=== PATIENT | female | born 1965 ===

== ENCOUNTER 2017-05-12 14:29 | Emergency (ER) | payer BC ==
--- NOTE | 2017-05-12 15:25 | UC ---
UC General HPI - History of Current Complaint Chief Complaint: UCGeneralIllness Stated Complaint: MEDICATION CONCERN Time Seen by Provider: 05/12/17 15:16 Hx Obtained From: Patient Onset/Duration: Sudden Onset - Took 20mg propranolol this morning and then took a 60 mg Propranolol SR at 1 PM. Started to feel off 45 minutes later, like drunk / slowing down., Lasting Hours - 2, Still Present Onset Severity: Moderate Current Severity: Moderate Associated Signs & Symptoms: Positive: Diarrhea, Nausea. Negative: Confusion - but feels that thinking is slow, Chest Pain, Diaphoresis, Fever, Headache, Palpitations, SOB, Vomiting, Weakness - Allergy/Home Medications Allergies/Adverse Reactions: Allergies Allergy/AdvReac Type Severity Reaction Status Date / Time Amoxicillin Allergy Hives Verified 05/12/17 14:37 Cephalexin [From Keflex] Allergy Hives Verified 05/12/17 14:37 Home Medications: Home Medications ALPRAZolam TAB* [Xanax TAB*] 0.25 mg PO BID PRN 05/12/17 [History Confirmed 06/21] Omeprazole CAP* [Prilosec CAP* 20 MG] 20 mg PO DAILY 05/12/17 [History Confirmed 05/12/17] Propranolol LA CAP* [Inderal LA CAP*] 60 mg PO DAILY 05/12/17 [History Confirmed 05/12/17] Propranolol TAB* [Inderal TAB*] 20 mg PO TID 05/12/17 [History Confirmed ] PMH/Surg Hx/FS Hx/Imm Hx - Surgical History Surgical History: None - Social History Alcohol Use: Weekly Alcohol Amount: 4-5 times a week Substance Use Type: None, Prescribed Substance Use Comment - Amount & Last Used: xanax Smoking Status (MU): Never Smoked Tobacco Review of Systems Constitutional: Fatigue Neurological: Other - brain felt drunk, but feeling better. Psychological: Anxious All Other Systems Reviewed And Are Negative: Yes Physical Exam Triage Information Reviewed: Yes Appearance: Well-Appearing, No Pain Distress, Well-Nourished Vital Signs: Initial Vital Signs Temp 97.2 F 05/12/17 14:30 Pulse 64 05/12/17 14:30 Resp 14 05/12/17 14:30 BP 138/75 05/12/17 14:30 Pulse Ox 95 05/12/17 14:30 Vital Signs Reviewed: Yes Eyes: Positive: Conjunctiva Clear ENT Exam: Normal ENT: Positive: Nasal congestion - with allergic changes. Neck exam: Normal Respiratory Exam: Normal Cardiovascular: Positive: RRR, Pulses Normal, Murmur:Sys:Grade _?_/ - 3/6 GENNY Abdominal Exam: Normal Bowel Sounds: Positive: Present Musculoskeletal Exam: Normal Neurological Exam: Normal Psychological Exam: Normal Skin Exam: Normal Re-Evaluation - Re-Evaluation First Eval Re-Evaluation Time: 16:05 Change: Improved - nausea has resolved. Comment: EKG shows partial resolution of Ant/Septal ST/T changes. Course/Dx - Differential Dx - Multi-Symptom Differential Diagnoses: Cardiac Ischemia, CVA, Metabolic Abnormality Provider Diagnoses: Abnormal EKG. Right bundle branch block - Physician Notifications Discussed Patient Care With: Denia Marin Time Discussed With Above Provider: 16:14 Instructed by Provider To: Transfer - to [facility] Discharge - Discharge Plan Condition: Guarded Disposition: TRANS HIGHER LVL OF CARE FAC
[2017-05-12 16:27] VITALS: BP 133/74
== END 2017-05-12 16:28 | disposition short-term general hospital (02) ==
LOC: UCCORT 14:29
DX: R94.31 Abnormal electrocardiogram [ECG] [EKG] (principal); I45.10 Unspecified right bundle-branch block; R19.7 Diarrhea, unspecified; R11.0 Nausea; Z88.1 Allergy status to other antibiotic agents
CPT/HCPCS: 93005; 99203; G0463